=== PATIENT | female | born 1995 | race Two or more races ===

== ENCOUNTER 2024-05-09 15:57 | Emergency (ER) | payer MEDICAID, OTHER ==
[~2024-05-09] VITALS: Ht 162.6 cm; Wt 93.0 kg
[2024-05-09 17:41] VITALS: BP 100/55; PULSE 61; RESP 18; TEMP 98.5; O2SAT 98
[2024-05-09] MEDS: KETOROLAC TROMETH 30 MG/ML 1ML VIAL IM ONE (17:42)
== END 2024-05-09 19:00 | disposition left against medical advice (07) ==
LOC: ER 15:57
DX: M43.6 Torticollis (principal); F41.9 Anxiety disorder, unspecified
CPT/HCPCS: 96372; 99283; J1885